=== PATIENT | male | born 1990 | race American Indian/Alaskan Native ===

== ENCOUNTER 2019-03-25 19:48 | Emergency (ER) | payer OTHER ==
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
[2019-03-25 20:37] VITALS: BP 122/74
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
[2019-03-25] MEDS ORDERED: ACETAMINOPHEN 500 MG TAB PO ONE (22:30)
[2019-03-25] MEDS ORDERED: IBUPROFEN 600 MG TAB PO ONE (22:30)
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
== END 2019-03-25 22:45 | disposition home or self-care (01) ==
LOC: ED 19:48
DX: M54.2 Cervicalgia (principal); M54.6 Pain in thoracic spine; M54.5 Low back pain; Z79.899 Other long term (current) drug therapy; V89.2XXA Person injured in unspecified motor-vehicle accident, traffic, initial encounter; Y93.89 Activity, other specified; Y92.488 Other paved roadways as the place of occurrence of the external cause; Y99.8 Other external cause status
CPT/HCPCS: 72040; 72100; 99283